=== PATIENT | female | born 1955 | race Caucasian/White ===

== ENCOUNTER 2018-11-18 23:27 | Inpatient (IN) | payer OTHER ==
[~2018-11-18] VITALS: Ht 152.4 cm; Wt 79.4 kg
[2018-11-19] MEDS ORDERED: ACETAMINOPHEN 325MG TABLET PO STA (00:17)
[2018-11-19] MEDS ORDERED: SODIUM CHLORIDE 0.9% 1000ML BAG (SEPSIS BOLUS) IV ONE (00:30)
[2018-11-19 00:33] LABS: BASOPHILS % 0.5 % (0.0-2.0); EOSINOPHILS % 0.8 % (0.0-5.0); HEMATOCRIT. 38.9 % (36.0-48.0); HEMOGLOBIN. 13.7 g/dL (12.0-16.0); LYMPHOCYTES % 11.7 % (20.0-50.0); MEAN CORPUSCULAR HEMOGLOBIN 31.9 pg (28.0-32.0); MEAN CORPUSCULAR VOLUME 90.6 fL (81.0-99.0); MEAN PLATELET VOLUME 8.1 fl (7.4-10.4); MONOCYTES % 10.2 % (2.0-8.0); NEUTROPHILS % 76.8 % (40.0-76.0); PLATELET 219 x1000/uL (130-400); RED BLOOD CELL COUNT 4.29 mill/uL (4.2-5.4); RED CELL DISTRIBUTION WIDTH 12.1 % (11.6-14.6)
[2018-11-19 00:41] LABS: CHLORIDE 95 mEq/L (98-107)
[2018-11-19 00:42] LABS: INR 1.1; PROTHROMBIN TIME 11.2 sec (9.1-11.1)
[2018-11-19] MEDS ORDERED: INSULIN REGULAR (HUMULIN R) 300UNITS/3ML SUBCUT ONE (01:30)
[2018-11-19] MEDS ORDERED: CEFTRIAXONE 1 G PREMIX 50 ML IV ONE (01:30)
[2018-11-19] MEDS ORDERED: AZITHROMYCIN 500 MG in DEXT 5% WATER 250 ML IV SCH (01:30)
[2018-11-19] MEDS ORDERED: ALBUTEROL (0.083%) 2.5MG/3ML NEB HHN ONE (01:30)
[2018-11-19 01:50] LABS: CLARITY URINE CLEAR (CLEAR); COLOR URINE YELLOW (YELLOW); KETONES URINE 1+ (NEGATIVE); LEUKOCYTE ESTERASE URINE NEGATIVE (NEGATIVE); NITRITE URINE NEGATIVE (NEGATIVE); OCCULT BLOOD URINE NEGATIVE (NEGATIVE); PROTEIN URINE NEGATIVE (NEGATIVE); SPECIFIC GRAVITY URINE 1.009 (1.005-1.030); UROBILINOGEN URINE 0.2 E.U./dL (0.2-1.0)
[2018-11-19] MEDS ORDERED: HYDROCODONE/ACETAMINOPHEN 5/325MG TABLET PO PRN (06:15)
[2018-11-19] MEDS ORDERED: MAGNESIUM/ALUMINUM HYDROXIDE/SIMETHICONE 30ML UDC PO PRN (06:15)
[2018-11-19] MEDS ORDERED: NA PHOS,M-B/NA PHOS,DI-BA ENEMA 118ML PR PRN (06:15)
[2018-11-19] MEDS ORDERED: DOCUSATE SODIUM 100MG CAPSULE PO PRN (06:15)
[2018-11-19] MEDS ORDERED: LEVOFLOXACIN 500MG PREMIX 100 ML IV SCH (06:15)
[2018-11-19] MEDS ORDERED: ONDANSETRON HCL 4MG/2ML INJ IV PRN (06:15)
[2018-11-19] MEDS ORDERED: IPRATROPIUM/ALBUTEROL 0.5-3(2.5)MG/3ML NEB INH PRN (06:15)
[2018-11-19] MEDS ORDERED: CLONIDINE 0.1MG TABLET PO PRN (06:15)
[2018-11-19] MEDS ORDERED: LEVOFLOXACIN 500MG PREMIX 100 ML IV NR (06:31)
[2018-11-19] MEDS: SODIUM CHLORIDE 0.9% 1,000 ML IV SCH ×3 (06:42→22:29)
[2018-11-19] MEDS: GUAIFENESIN 200MG/10ML SUGAR FREE UDC PO PRN (12:11)
[2018-11-19] MEDS ORDERED: GUAIFENESIN 600MG ER TABLET PO NR (19:00)
[2018-11-19] MEDS: ACETAMINOPHEN 325MG TABLET PO PRN (20:53)
[2018-11-19 21:10] VITALS: BP 146/77
[2018-11-19 21:15] VITALS: BP 146/77
[2018-11-19] MEDS ORDERED: DEXTROSE 50% WATER 50ML SYRINGE IV PRN (21:45)
[2018-11-19] MEDS ORDERED: BENA5TAB6 PO (22:10)
[2018-11-19] MEDS ORDERED: METF-414 PO (22:10)
[2018-11-19] MEDS: BLOOD SUGAR DIAGNOSTIC STRIP TEST SCH (22:20)
[2018-11-19] MEDS: ENOXAPARIN 40MG/0.4ML SYR SUBCUT SCH (22:27)
[2018-11-19] MEDS: INSULIN LISPRO 100 UNITS/ML SUBCUT SCH (22:27)
[2018-11-20] VITALS: BP 120/56
[2018-11-20 04:00] VITALS: BP 131/71
[2018-11-20] MEDS: BLOOD SUGAR DIAGNOSTIC STRIP TEST SCH ×3 (05:51→21:00)
[2018-11-20] MEDS: INSULIN LISPRO 100 UNITS/ML SUBCUT SCH ×3 (06:12→21:37)
[2018-11-20 06:37] LABS: HEMATOCRIT. 38.3 % (36.0-48.0); HEMOGLOBIN. 13.4 g/dL (12.0-16.0); MEAN CORPUSCULAR HEMOGLOBIN 32.2 pg (28.0-32.0); MEAN CORPUSCULAR VOLUME 91.8 fL (81.0-99.0); MEAN PLATELET VOLUME 8.3 fl (7.4-10.4); PLATELET 192 x1000/uL (130-400); RED BLOOD CELL COUNT 4.18 mill/uL (4.2-5.4); RED CELL DISTRIBUTION WIDTH 12.4 % (11.6-14.6)
[2018-11-20 06:39] LABS: CHLORIDE 101 mEq/L (98-107)
[2018-11-20 08:00] VITALS: BP 137/68
[2018-11-20] MEDS: LEVOFLOXACIN 500MG PREMIX 100 ML IV SCH (08:17)
[2018-11-20] MEDS: GUAIFENESIN 600MG ER TABLET PO SCH ×2 (08:17→21:36)
[2018-11-20] MEDS: ACETAMINOPHEN 325MG TABLET PO PRN ×2 (08:17→21:36)
[2018-11-20] MEDS: ENOXAPARIN 40MG/0.4ML SYR SUBCUT SCH (08:18)
[2018-11-20 12:00] VITALS: BP 130/78
[2018-11-20 12:53] LABS: PLATELET ESTIMATE NORMAL
[2018-11-20] MEDS: SODIUM CHLORIDE 0.9% 1,000 ML IV SCH (13:35)
[2018-11-20 16:00] VITALS: BP 135/80
[2018-11-20] MEDS: BENZONATATE 100MG CAPSULE PO PRN (16:38)
[2018-11-20] MEDS: GUAIFENESIN 200MG/10ML SUGAR FREE UDC PO PRN (16:43)
[2018-11-20] MEDS: IPRATROPIUM/ALBUTEROL 0.5-3(2.5)MG/3ML NEB HHN SCH ×2 (17:52→20:25)
[2018-11-20 20:00] VITALS: BP 126/54
[2018-11-21] VITALS: BP 132/76
[2018-11-21] MEDS: IPRATROPIUM/ALBUTEROL 0.5-3(2.5)MG/3ML NEB HHN SCH ×4 (01:26→14:43)
[2018-11-21] MEDS: SODIUM CHLORIDE 0.9% 1,000 ML IV SCH (02:08)
[2018-11-21 04:00] VITALS: BP 119/68
[2018-11-21] MEDS: BLOOD SUGAR DIAGNOSTIC STRIP TEST SCH ×4 (06:08→20:09)
[2018-11-21 06:30] LABS: HEMATOCRIT. 38.3 % (36.0-48.0); HEMOGLOBIN. 13.2 g/dL (12.0-16.0); MEAN CORPUSCULAR HEMOGLOBIN 31.8 pg (28.0-32.0); MEAN CORPUSCULAR VOLUME 91.9 fL (81.0-99.0); MEAN PLATELET VOLUME 8.1 fl (7.4-10.4); PLATELET 190 x1000/uL (130-400); RED BLOOD CELL COUNT 4.16 mill/uL (4.2-5.4); RED CELL DISTRIBUTION WIDTH 12.6 % (11.6-14.6)
[2018-11-21 06:38] LABS: CHLORIDE 102 mEq/L (98-107)
[2018-11-21] MEDS: INSULIN LISPRO 100 UNITS/ML SUBCUT SCH ×4 (06:52→20:09)
[2018-11-21 08:00] VITALS: BP 114/63
[2018-11-21] MEDS: ENOXAPARIN 40MG/0.4ML SYR SUBCUT SCH (08:53)
[2018-11-21] MEDS: GUAIFENESIN 600MG ER TABLET PO SCH ×2 (08:53→20:30)
[2018-11-21] MEDS: LEVOFLOXACIN 500MG PREMIX 100 ML IV SCH (08:53)
[2018-11-21] MEDS: ACETAMINOPHEN 325MG TABLET PO PRN (08:53)
[2018-11-21 09:58] LABS: PLATELET ESTIMATE NORMAL
[2018-11-21 12:00] VITALS: BP 122/74
[2018-11-21 16:00] VITALS: BP 120/62
[2018-11-21 20:26] VITALS: BP 135/56
[2018-11-21] MEDS: GUAIFENESIN 200MG/10ML SUGAR FREE UDC PO PRN (20:30)
[2018-11-21] MEDS: IPRATROPIUM BROMIDE (0.02%) 0.5MG/2.5ML NEB HHN SCH (20:49)
[2018-11-21] MEDS: BENZONATATE 100MG CAPSULE PO PRN (23:20)
[2018-11-22] VITALS: BP 145/61
[2018-11-22] MEDS: IPRATROPIUM BROMIDE (0.02%) 0.5MG/2.5ML NEB HHN SCH (01:00)
[2018-11-22 04:00] VITALS: BP 138/66
[2018-11-22] MEDS: BLOOD SUGAR DIAGNOSTIC STRIP TEST SCH (06:11)
[2018-11-22] MEDS: INSULIN LISPRO 100 UNITS/ML SUBCUT SCH (06:27)
[2018-11-22 08:00] VITALS: BP 125/55
[2018-11-22] MEDS: GUAIFENESIN 600MG ER TABLET PO SCH (09:46)
[2018-11-22] MEDS: ENOXAPARIN 40MG/0.4ML SYR SUBCUT SCH (09:46)
[2018-11-22] MEDS: LEVOFLOXACIN 500MG PREMIX 100 ML IV SCH (09:46)
[2018-11-22 11:27] VITALS: BP 126/55
[2018-11-22 12:00] VITALS: BP 162/73
== END 2018-11-22 12:48 | disposition home or self-care (01) | DRG 871 ==
LOC: ER 23:27 → 8WST 11-19 01:43 → EDBEDREQ 11-19 01:45 → EDBEDREQTM 11-19 01:45 → EDBEDREQSVC 11-19 01:45 → SUPCPDRO 11-19 06:08 → ENRESERV 11-19 20:14
PROVIDERS: ADMIT Hospitalist; ATTEND Hospitalist
DX: A41.51 Sepsis due to Escherichia coli [E. coli] (principal); J18.9 Pneumonia, unspecified organism; J96.00 Acute respiratory failure, unspecified whether with hypoxia or hypercapnia; E87.1 Hypo-osmolality and hyponatremia; N39.0 Urinary tract infection, site not specified; J40 Bronchitis, not specified as acute or chronic; B34.9 Viral infection, unspecified; D72.821 Monocytosis (symptomatic); E11.9 Type 2 diabetes mellitus without complications; I10 Essential (primary) hypertension; F17.200 Nicotine dependence, unspecified, uncomplicated; Z83.3 Family history of diabetes mellitus; Z79.899 Other long term (current) drug therapy
CPT/HCPCS: 36415; 71045; 82962; 83605; 84484; 87077; 87186; 87804; 93005; 93970; 96365; 96366; 96367; 96372; 99285; J0456; J0696; J1650; J1815; J1956; J7030; J7050; J7060; J7611; J7620